=== PATIENT | male | born 1945 | race Caucasian/White ===

== ENCOUNTER 2021-07-28 09:34 | Day surgery (SDC) | payer MEDICARE, SELFPAY ==
--- NOTE | 2021-07-28 06:36 | W.ANESPRE ---
General Info Date of Service Date Performed: 07/28/21 Height: 6 ft Weight: 77.111 kg Body Mass Index (BMI): 23.0 Surgical Procedure: Operation Date: 07/28/21 11:25 Proposed Procedure Side Surgeon p Cataract Extraction with IOL Implant Left Tello Stinson MD Meds Allergies and Home Medications Allergies Allergy/AdvReac Type Severity Reaction Status Date / Time clopidogrel Allergy Severe Skin Rash Unverified 07/28/21 09:48 fish oil Allergy Intermediate rash Unverified 07/28/21 09:48 venom-honey bee Allergy Intermediate Swelling/Ed Unverified 07/28/21 09:48 [bee venom (honey bee)] pearl Home Medication Medication Instructions Recorded cholecalciferol (vitamin D3) 25 1,000 unit PO DAILY 02/18/15 mcg (1,000 unit) capsule (Vitamin D3) garlic 1 ea PO DAILY 02/18/15 metoprolol succinate 50 mg 50 mg PO DAILY 02/18/15 tablet,extended release 24 hr (Toprol XL) Cbd Extract 12.5 mg topical BID 07/26/21 apixaban 5 mg tablet (Eliquis) 5 mg PO BID 07/26/21 atorvastatin 40 mg tablet 40 mg PO DAILY 07/26/21 fenofibrate 54 mg tablet 54 mg PO DAILY 07/26/21 finasteride 5 mg tablet 5 mg PO DAILY 07/26/21 prednisone 20 mg tablet 20 mg PO DIRECTED 07/26/21 [facility] Medical History Medical History (Updated 07/28/21 @ 09:47 by Myesha Bennett) A-fib Acquired stenosis of bladder neck Actinic keratoses Backache CAD (coronary artery disease) Cataract Compression injury of nerve Cough HLD (hyperlipidemia) Hx of colonic polyp Hyperlipidemia Impotence of organic origin Itching Myocardial infarction 2007-F/U with Dr. Garza- roughly seen 05/2021. Pt. 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 FELICIA (obstructive sleep apnea) Seborrheic dermatitis Skin malignant neoplasm Snoring Surgical History Surgical History (Updated 07/27/21 @ 11:39 by José Ramos) Coronary Stent 2007 x1 Skin Cancer Removal Tobacco Smoking/Tobacco Use Status: Never Alcohol Alcohol Intake: never Substance Use Substance use: Never Substance use type: does not use Vital Signs and Lab Results Lab Results Blood Type / Crossmatch: No Data to Display Complete Blood Count: No Data to Display Complete Metabolic Panel: No Data to Display Liver Function Panel: No Data to Display Coagulation Panel: No Data to Display Cardiac Panel: No Data to Display Arterial Blood Gas: No Data to Display Venous Blood Gas: No Data to Display Pancreas Panel: No Data to Display Thyroid Panel: No Data to Display Infectious Disease: No Data to Display Blood Cultures: No Data to Display Toxicology Panel: No Data to Display Anesthesia Assessment and Plan Anesthesia History Personal History: No History of Anesthesia Complications Family History: No Family History of Anesthesia Complications Exercise Tolerance Exercise Tolerance: Metabolic Equivalents>4 Cardiac & Pulmonary Exam Cardiac Exam: Normal S1/S2 Heart Sounds Pulmonary Exam: Clear Bilateral Breath Sounds Implantable Cardiac Device Does patient have a Pacemaker or an ICD?: No Airway Exam Known Difficult Airway: No Mallampati Class: 1 Mouth Opening: Normal (> 3cm) Thyromental Distance: Greater than 3 cm Neck Range of Motion: Full ROM Neck Circumference: Normal Teeth Condition: Normal Dentition ASA Classification ASA Score: ASA 3 Emergency Case?: No NPO Status NPO Status: NPO Clears >2 hours, Solids >8 hours Anesthesia Plan Resuscitation Status: Full Code Anesthesia Technique: MAC Anesthesia Airway Planned: Natural Airway Monitors Used: Standard Monitors Preoperative Comments:: 76 yo male for cataract removal. Sig PMHx: CAD/[place] 2008 (metoprolol), afib (eliquis), FELICIA, back pain. Previous Anes: 5 LMA, easy mask. No mko
[2021-07-28 09:28] VITALS: BMI 23.0
[2021-07-28 09:40] VITALS: BP 148/72; PULSE 66; RESP 16; TEMP 36.4; O2SAT 98
[2021-07-28] MEDS: Tropicam./Phenyleph. (1/2.5%) 5 ML BTL ×3 (09:45→10:00)
[2021-07-28] MEDS: Balanced Salt Soln.-PLUS 500 ML BAG (10:48)
[2021-07-28] MEDS: Lidocaine 2% Jelly 6 ML SYR (10:48)
[2021-07-28] MEDS: Povidone-Iodine Ophth 30 ML BTL (10:49)
[2021-07-28] MEDS: Duovisc Viscoelastic System EACH 1 EACH (10:50)
[2021-07-28] MEDS: Tetracaine 0.5% 4 ML BTL (10:50)
--- NOTE | 2021-07-28 11:03 | W.PM.DSUDISC ---
Discharge Plan Disposition Patient Disposition: HOME Condition: Good Discharge Details Attending Provider: Tello Stinson Primary Care Provider: Baudilio Saunders [place] Meds and New Rx's Prescriptions: No Action metoprolol succinate [Toprol XL] 50 MG tablet extended release 24 hr 50 mg PO DAILY garlic 1 EACH capsule 1 ea PO DAILY cholecalciferol (vitamin D3) [Vitamin D3] 1,000 UNIT capsule 1,000 unit PO DAILY atorvastatin 40 mg Tablet 40 mg PO DAILY finasteride 5 mg tablet 5 mg PO DAILY Label Comments: TAKE ONE TABLET BY MOUTH EVERY DAY fenofibrate 54 mg tablet 54 mg PO DAILY Label Comments: TAKE ONE TABLET BY MOUTH EVERY DAY Eliquis 5 mg tablet 5 mg PO BID Label Comments: TAKE ONE TABLET BY MOUTH TWICE A DAY Cbd Extract 12.5 mg topical BID prednisone 20 mg tablet 20 mg PO DIRECTED Label Comments: TAKE ONE TABLET BY MOUTH FOR BEE STING NEEDED Discharge Instructions Stand Alone Forms: Post-op Topical Cataract, Annalise Pacheco (DSU) Discharge Orders Discharge Orders: Discharge Order (Routine); Ordered 07/28/21 Ordered By: Tello Stinson DS: Diagnosis Discharge Diagnosis (1) Cortical cataract of left eye: Status: Resolved (2) Nuclear sclerotic cataract of left eye: Status: Resolved (3) Posterior subcapsular age-related cataract of left eye: Status: Resolved
--- NOTE | 2021-07-28 11:04 | W.PM.OP ---
Date of service: 07/28/21 Time of Service: 10:04 Operative Note Operative Note DATE OF PROCEDURE: 07/28/21 PRE-OP DIAGNOSIS: Nuclear/cortical/posterior subcapsular cataract, left eye POST-OP DIAGNOSIS: same PROCEDURE: Cataract extraction using phacoemulsification with intraocular lens implant, left eye SURGEON: Tello Stinson ANESTHESIA TYPE: Local By Surgeon and MAC Refer to Anesthesia Record PATHOLOGY: none sent COMPLICATIONS: None Patient was transported to: same day Patient's condition: stable Implants: Dur[employer] Duran / [employer] Tecnis [id number] Indications: Progressive decreased vision due to cataract, left eye Procedure Description: CATARACT SURGERY OPERATIVE REPORT PREOPERATIVE DIAGNOSIS: 1. Nuclear/cortical/posterior subcapsular cataract, left eye POSTOPERATIVE DIAGNOSIS: Same OPERATION: 1. Cataract extraction using phacoemulsification with posterior chamber intraocular lens implant, left eye. IOL: IOL Certified Technician Specialist/Model: Duran [employer] Duran / ELADIO Tecnis [id number] IOL Power: + 20.0 diopters IOL Serial Number: [id number] Optic Diameter: 6.0 mm Haptic/Overall Diameter: 13.0 mm PHACO INFO: Tuan Eye[employer]urion Vision System with OZil and Active Fluidics Cumulative Dispersed Energy (CDE): 9.11 seconds SURGEON: Tello Stinson MD, MARY ANESTHESIA: Monitored A [facility] (MAC), with local sub-tenon's anesthetic infiltration COMPLICATIONS: None SPECIMENS: None INDICATIONS FOR PROCEDURE: The patient is a 76-year-old gentleman with history of diminished visual acuity in his left eye secondary to the development of nuclear/cortical/posterior subcapsular cataract. The option of cataract surgery was offered to the patient and he felt he was symptomatic enough that he wished to proceed. PROCEDURE: The correct surgical eye was identified and marked as the left eye and the pupil was dilated in the preoperative area using mydriatics and cycloplegics. The dilated pupil size was 7.0 mm. He elected to proceed without oral sedation.. The patient was brought to the operating room where cardiopulmonary monitoring was instituted and surgical time-out was performed, confirming the correct operative eye and IOL power. Topical anesthesia was administered and ophthalmic povidone-iodine 5% was instilled into the conjunctival fornices. Lidocaine gel was applied to the cornea and the saurabh-ocular area was prepped with Betadine 10% solution and draped in the usual sterile fashion for intraocular surgery, including an aperture drape. A Tegaderm transparent film dressing was cut in half and used to cover the lashes and lid margins. Care was taken to sequester the lashes and lid margins under the Tegaderm dressing. A lid speculum was placed between the lids of the operative eye and the Tuan [employer] Revalia operating microscope was maneuvered into position. Kevin scissors were then used to make a conjunctival buttonhole approximately 6mm posterior to the limbus in the inferonasal quadrant. Blunt dissection was carried out to expose bare sclera, and a blunt-tipped sub-tenon?s anesthesia cannula was introduced and passed posteriorly along the globe where non-preserved plain lidocaine was injected into posterior sub-Tenon?s space. A sideport knife was used to make a paracentesis port superiorly/superiortemporally. Intraocular phenylephrine/lidocaine was injected int the anterior chamber.. The anterior chamber was filled with viscoelastic. A 2.4mm keratome knife was used to construct a 2-plane near-clear corneal tunnel extending 2.0mm into clear cornea temporally. A flap was raised on the anterior capsule and capsulorhexis forceps were used to complete a continuous curvilinear capsulorhexis of 5.0 mm. Balanced salt solution was then used to perform cortical cleaving hydrodissection and nuclear hydrodelineation until the lens could be freely rotated within the capsular bag. The lens nucleus was then disassembled and removed within the capsular bag and iris plane using phacoemulsification. Residual cortical material was removed using the 45-degree angled silicone I/A tip with 0.3mm port. The posterior capsule was carefully polished to remove as much residual lens epithelial cells as safely possible. The capsular bag was then inflated and the anterior chamber deepened with viscoelastic. The lens implant described above was inserted into the capsular bag using the ELADIO [place] Injector. A Kuglen hook was used to dial the IOL into position. Residual viscoelastic was then removed first from posterior to the IOL, then from the anterior chamber using the I/A handpiece. The lens implant was noted to center nicely within the capsular bag. The incisions were stromally hydrated, and the anterior chamber was reformed using BSS. Then 0.5cc of moxifloxacin 1.0mg/ml were injected into the capsular bag and anterior chamber. The incisions were checked with a Weck spear and found to be secure. Several drops of ophthalmic povidone-iodine 5% were then applied to the eye followed by two drops of Imprimis combination prednisolone/moxifloxacin/nepafenac solution. The drapes were removed and a clear plastic protective eye shield was placed over the eye. The patient was then returned to Same Day Surgery in stable condition.
[2021-07-28 11:10] VITALS: BP 134/65; PULSE 53; RESP 16; TEMP 36.5; O2SAT 98
--- NOTE | 2021-07-28 11:27 | W.ANESPOSTOP ---
Postoperative Evaluation Date, Time and Location Date Performed: 07/28/21 Time Performed: 10:27 Patient Location: Day Surgery Unit Vital Signs Most Recent Imported Vital Signs: Most Recent Vital Signs Temp Pulse Resp BP Pulse Ox 36.5 C 53 L 16 134/65 98 07/28/21 11:10 07/28/21 11:10 07/28/21 11:10 07/28/21 11:10 07/28/21 11:10 Pain Score Most Recent Pain Score: Most Recent Pain Score Pain Level 0 07/28/21 11:10 Assessment Mental Status: Awake (Alert & Oriented to Patient Baseline) Airway and Respiratory Function: Patent airway with normal (patient baseline) respiratory exam Cardiovascular Function: Hemodynamically Stable Hydration Status: Adequately Hydrated Nausea & Vomiting: No Nausea or Vomiting Pain: Pt. Denies Any Pain Peripheral Nerve Block: Patient did not receive a nerve block
== END 2021-07-28 11:37 | disposition home or self-care (01) ==
PROVIDERS: PCP Neuromusculoskeletal Medicine & OMM; Visit Provider Ophthalmology
PROC: (CPT 66984; principal; 2021-07-28 11:30)
DX: H25.812 Combined forms of age-related cataract, left eye (principal); I48.91 Unspecified atrial fibrillation; I25.10 Atherosclerotic heart disease of native coronary artery without angina pectoris; G47.33 Obstructive sleep apnea (adult) (pediatric); Z79.01 Long term (current) use of anticoagulants
CPT/HCPCS: 66984; V2632

== ENCOUNTER 2021-08-11 06:53 | Day surgery (SDC) | payer MEDICARE, SELFPAY ==
[2021-08-11] MEDS: Tropicam./Phenyleph. (1/2.5%) 5 ML BTL OD ×3 (07:24→07:40)
[2021-08-11 07:25] VITALS: BP 129/80; PULSE 60; RESP 16; TEMP 36.4; O2SAT 98
--- NOTE | 2021-08-11 07:46 | ANES.PREOP_ITS ---
General Info Date of Service Date Performed: 08/11/21 Height: 6 ft Weight: 79.7 kg Body Mass Index (BMI): 23.8 Surgical Procedure: Operation Date: 08/11/21 08:25 Proposed Procedure Side Surgeon p Cataract Extraction with IOL Implant Right Tello Stinson MD Meds Allergies and Home Medications Allergies Allergy/AdvReac Type Severity Reaction Status Date / Time clopidogrel Allergy Severe Skin Rash Unverified 08/11/21 07:13 fish oil Allergy Intermediate rash Unverified 08/11/21 07:13 venom-honey bee Allergy Intermediate Swelling/Ed Unverified 08/11/21 07:13 [bee venom (honey bee)] pearl fentanyl AdvReac vomiting Verified 08/11/21 07:47 Home Medication Medication Instructions Recorded cholecalciferol (vitamin D3) 25 1,000 unit PO DAILY 02/18/15 mcg (1,000 unit) capsule (Vitamin D3) garlic 1 ea PO DAILY 02/18/15 metoprolol succinate 50 mg 50 mg PO HS 02/18/15 tablet,extended release 24 hr (Toprol XL) Cbd Extract 12.5 mg topical BID 07/26/21 apixaban 5 mg tablet (Eliquis) 5 mg PO BID 07/26/21 atorvastatin 40 mg tablet 40 mg PO DAILY 07/26/21 fenofibrate 54 mg tablet 54 mg PO DAILY 07/26/21 finasteride 5 mg tablet 5 mg PO DAILY 07/26/21 prednisone 20 mg tablet 20 mg PO DIRECTED 07/26/21 dimenhydrinate 50 mg tablet 50 mg PO Q8H 08/11/21 (Dramamine) sertraline 50 mg tablet 0.5 tab PO DAILY 08/11/21 Current Visit Medications: Current Medications Generic Name Dose Route Start Last Admin Trade Name Freq PRN Reason Stop Dose Admin Acetaminophen 1,000 mg 08/11/21 06:00 Acetaminophen 500 Mg Tab PO Q4H PRN PRN Miscellaneous Medication 0 ml 08/11/21 06:00 Prednisolone 1%, Moxifloxacin 0.5%, Nepafenac 0.1% 5ml Btl OD DIRECTED [facility] Miscellaneous Medication 0 ml 08/11/21 06:00 08/11/21 07:40 Tropicam./Phenyleph. (1/2.5%) 5 Ml Btl OD 1 drp DIRECTED DIANA Administration Tetracaine HCl 0 ml 08/11/21 06:00 Tetracaine 0.5% 4 Ml Btl OD DIRECTED DIANA PFSH Active Problems Active Problems: Problem Status Onset Code Cortical cataract of left eye H26.9 Nuclear sclerotic cataract of left eye H25.12 Posterior subcapsular age-related cataract of left eye H25.042 Medical History Medical History (Updated 08/11/21 @ 07:19 by Atiya Booker) A-fib Acquired stenosis of bladder neck Actinic keratoses Backache CAD (coronary artery disease) Cataract Compression injury of nerve Cough HLD (hyperlipidemia) Hx of colonic polyp Hx of motion sickness Hyperlipidemia Impotence of organic origin Itching Myocardial infarction 2007-F/U with Dr. Garza- roughly seen 05/2021. Pt. 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 FELICIA (obstructive sleep apnea) Seborrheic dermatitis Skin malignant neoplasm Snoring Surgical History Surgical History Coronary Stent 2007 x1 Hx of cataract surgery Skin Cancer Removal Tobacco Smoking/Tobacco Use Status: Never Alcohol Alcohol Intake: never Substance Use Substance use: Never Substance use type: does not use Vital Signs and Lab Results Vital Signs Most Recent Vital Signs in EMR: Most Recent Vital Signs Temp Pulse Resp BP Pulse Ox 36.4 C L 60 16 129/80 98 08/11/21 07:25 08/11/21 07:25 08/11/21 07:25 08/11/21 07:25 08/11/21 07:25 Lab Results Blood Type / Crossmatch: No Data to Display Complete Blood Count: No Data to Display Complete Metabolic Panel: No Data to Display Liver Function Panel: No Data to Display Coagulation Panel: No Data to Display Cardiac Panel: No Data to Display Arterial Blood Gas: No Data to Display Venous Blood Gas: No Data to Display Pancreas Panel: No Data to Display Thyroid Panel: No Data to Display Infectious Disease: No Data to Display Blood Cultures: No Data to Display Toxicology Panel: No Data to Display Anesthesia Assessment and Plan Anesthesia History Personal History: No History of Anesthesia Complications Family History: No Family History of Anesthesia Complications Exercise Tolerance Exercise Tolerance: Metabolic Equivalents>4 Cardiac & Pulmonary Exam Cardiac Exam: Normal S1/S2 Heart Sounds Pulmonary Exam: Clear Bilateral Breath Sounds Implantable Cardiac Device Does patient have a Pacemaker or an ICD?: No Airway Exam Known Difficult Airway: No Mallampati Class: 1 Mouth Opening: Normal (> 3cm) Thyromental Distance: Greater than 3 cm Neck Range of Motion: Full ROM Neck Circumference: Normal Teeth Condition: Normal Dentition ASA Classification ASA Score: ASA 3 Emergency Case?: No NPO Status NPO Status: NPO Clears >2 hours, Solids >8 hours Anesthesia Plan Resuscitation Status: Full Code Anesthesia Technique: MAC Anesthesia Airway Planned: Natural Airway Monitors Used: Standard Monitors
[2021-08-11 07:47] VITALS: BMI 23.8
[2021-08-11] MEDS: Tetracaine 0.5% 4 ML BTL OD (08:10)
[2021-08-11] MEDS: Balanced Salt Soln.-PLUS 500 ML BAG (08:10)
[2021-08-11] MEDS: Duovisc Viscoelastic System EACH 1 EACH (08:11)
[2021-08-11] MEDS: Lidocaine 2% Jelly 6 ML SYR (08:13)
[2021-08-11] MEDS: Povidone-Iodine Ophth 30 ML BTL (08:14)
--- NOTE | 2021-08-11 08:29 | W.PM.DSUDISC ---
Discharge Plan Disposition Patient Disposition: HOME Condition: Good Discharge Details Attending Provider: Tello Stinson Primary Care Provider: Baudilio Saunders [place] Meds and New Rx's Prescriptions: No Action metoprolol succinate [Toprol XL] 50 MG tablet extended release 24 hr 50 mg PO HS garlic 1 EACH capsule 1 ea PO DAILY cholecalciferol (vitamin D3) [Vitamin D3] 1,000 UNIT capsule 1,000 unit PO DAILY dimenhydrinate [Dramamine] 50 mg Tablet 50 mg PO Q8H sertraline 50 mg tablet 0.5 tab PO DAILY Label Comments: TAKE ONE TABLET BY MOUTH EVERY DAY atorvastatin 40 mg Tablet 40 mg PO DAILY finasteride 5 mg tablet 5 mg PO DAILY Label Comments: TAKE ONE TABLET BY MOUTH EVERY DAY fenofibrate 54 mg tablet 54 mg PO DAILY Label Comments: TAKE ONE TABLET BY MOUTH EVERY DAY Eliquis 5 mg tablet 5 mg PO BID Label Comments: TAKE ONE TABLET BY MOUTH TWICE A DAY Cbd Extract 12.5 mg topical BID prednisone 20 mg tablet 20 mg PO DIRECTED Label Comments: TAKE ONE TABLET BY MOUTH FOR BEE STING NEEDED Discharge Instructions Stand Alone Forms: Post-op Topical Cataract, Annalise Pacheco (DSU) Discharge Orders Discharge Orders: Discharge Order (Routine); Ordered 08/11/21 Ordered By: Tello Stinson DS: Diagnosis Discharge Diagnosis (1) Cortical cataract of right eye: Status: Resolved (2) Nuclear sclerotic cataract of right eye: Status: Resolved (3) Posterior subcapsular age-related cataract, right eye: Status: Resolved
[2021-08-11 08:30] VITALS: BP 121/76; PULSE 62; RESP 16; TEMP 36.7; O2SAT 97
--- NOTE | 2021-08-11 08:31 | ROE_ITS ---
Date of service: 08/11/21 Time of Service: 07:31 Operative Note Operative Note DATE OF PROCEDURE: 08/11/21 PRE-OP DIAGNOSIS: Nuclear/cortical/posterior subcapsular cataract, right eye POST-OP DIAGNOSIS: same PROCEDURE: Cataract extraction using phacoemulsification with intraocular lens implant, right eye SURGEON: Tello Stinson ANESTHESIA TYPE: Local By Surgeon and MAC Refer to Anesthesia Record ESTIMATED BLOOD LOSS: 0 PATHOLOGY: none sent COMPLICATIONS: None Patient was transported to: same day Patient's condition: stable Implants: Duran & Duran/ELADIO Tecnis [id number] Indications: Progressive visual loss due to cataract, right eye Procedure Description: CATARACT SURGERY OPERATIVE REPORT PREOPERATIVE DIAGNOSIS: 1. Nuclear/cortical/posterior subcapsular cataract, right eye POSTOPERATIVE DIAGNOSIS: Same OPERATION: 1. Cataract extraction using phacoemulsification with posterior chamber intraocular lens implant, right eye. IOL: IOL Auto Service Instructor/Model: Dur[employer] Duran / ELADIO Tecnis [id number] IOL Power: + 20.5 diopters IOL Serial Number: [id number] Optic Diameter: 6.0mm Haptic/Overall Diameter: 13.0mm PHACO INFO: Tuan Quat-Eurion Vision System with OZil and Active Fluidics Cumulative Dispersed Energy (CDE): 9.70 seconds SURGEON: Tello Stinson MD, MARY ANESTHESIA: Monitored Anesthesia Care (MAC), with local sub-tenon's anesthetic infiltration COMPLICATIONS: None SPECIMENS: None INDICATIONS FOR PROCEDURE: The patient is a 76-year-old gentleman with history of diminished visual acuity in his right eye secondary to the development of nuclear/cortical/posterior subcapsular cataract. He has already undergone cataract surgery in the left eye and is doing well postoperatively. He now presents for cataract surgery in the right eye. PROCEDURE: The correct surgical eye was identified and marked as the right eye and the pupil was dilated in the preoperative area using mydriatics and cycloplegics. The dilated pupil size was 7.0 mm. He elected to proceed without oral sedation.. The patient was brought to the operating room where cardiopulmonary monitoring was instituted and surgical time-out was performed, confirming the correct operative eye and IOL power. Topical anesthesia was administered and ophthalmic povidone-iodine 5% was instilled into the conjunctival fornices. Lidocaine gel was applied to the cornea and the saurabh-ocular area was prepped with Betadine 10% solution and draped in the usual sterile fashion for intraocular surgery, including an aperture drape. A Tegaderm transparent film dressing was cut in half and used to cover the lashes and lid margins. Care was taken to sequester the lashes and lid margins under the Tegaderm dressing. A lid speculum was placed between the lids of the operative eye and the Tuan [employer] Revalia operating microscope was maneuvered into position. Kevin scissors were then used to make a conjunctival buttonhole approximately 6mm posterior to the limbus in the inferonasal quadrant. Blunt dissection was carried out to expose bare sclera, and a blunt-tipped sub-tenon?s anesthesia cannula was introduced and passed posteriorly along the globe where non- preserved plain lidocaine was injected into posterior sub-Tenon?s space. A curtis eport knife was used to make a paracentesis port inferotemporally. Intraocular phenylephrine/lidocaine was injected into the anterior chamber. The anterior chamber was filled with viscoelastic. A 2.4mm keratome knife was used to construct a 2-plane near-clear corneal tunnel extending 2.0mm into clear cornea superiortemporally. A flap was raised on the anterior capsule and capsulorhexis forceps were used to complete a continuous curvilinear capsulorhexis of 5.0 mm. Balanced salt solution was then used to perform cortical cleaving hydrodissection and nuclear hydrodelineation until the lens could be freely rotated within the capsular bag. The lens nucleus was then disassembled and removed within the capsular bag and iris plane using phacoemulsification. Residual cortical material was removed using the I/A handpiece. The posterior capsule was carefully polished to remove as much residual lens epithelial cells as safely possible. The capsular bag was then inflated and the anterior chamber deepened with viscoelastic. The lens implant described above was inserted into the capsular bag using the ELADIO [place] Injector. A Kuglen hook was used to dial the IOL into position. Residual viscoelastic was then removed first from posterior to the IOL, then from the anterior chamber using the I/A handpiece. The lens implant was noted to center nicely within the capsular bag. The incisions were stromally hydrated, and the anterior chamber was reformed using BSS. Then 0.5cc of moxifloxacin 1.0mg/ml were injected into the capsular bag and anterior chamber. The incisions were checked with a Weck spear and found to be secure. Several drops of ophthalmic povidone-iodine 5% were then applied to the eye followed by two drops of Imprimis combination prednisolone/moxifloxacin/nepafenac solution. The drapes were removed and a clear plastic protective eye shield was placed over the eye. The patient was then returned to Same Day Surgery in stable condition.
--- NOTE | 2021-08-11 08:32 | W.ANESPOSTOP ---
Postoperative Evaluation Date, Time and Location Date Performed: 08/11/21 Time Performed: 08:23 Patient Location: Day Surgery Unit Vital Signs Most Recent Imported Vital Signs: Most Recent Vital Signs Temp Pulse Resp BP Pulse Ox 36.4 C L 60 16 129/80 98 08/11/21 07:25 08/11/21 07:25 08/11/21 07:25 08/11/21 07:25 08/11/21 07:25 Most Recent Manually Entered Vital Signs: Adult Blood Pressure: 121/76 Heart Rate: 62 Respirations: 16 Oxygen Saturation (%): 97 Temperature (C): 36.7 C Pain Score (0-10 Scale): 0 Pain Score Most Recent Pain Score: Most Recent Pain Score Pain Level 0 08/11/21 07:25 Assessment Mental Status: Awake (Alert & Oriented to Patient Baseline) Airway and Respiratory Function: Patent airway with normal (patient baseline) respiratory exam Cardiovascular Function: Hemodynamically Stable Hydration Status: Adequately Hydrated Nausea & Vomiting: No Nausea or Vomiting Pain: Pt. Denies Any Pain Peripheral Nerve Block: Patient did not receive a nerve block
[2021-08-11 08:33] VITALS: BP 121/76; PULSE 62; RESP 16; TEMPC 36.7; O2SAT 97
== END 2021-08-11 08:50 | disposition home or self-care (01) ==
PROVIDERS: PCP Neuromusculoskeletal Medicine & OMM; Visit Provider Ophthalmology
PROC: (CPT 66984; principal; 2021-08-11 08:15)
DX: H25.811 Combined forms of age-related cataract, right eye (principal); I48.91 Unspecified atrial fibrillation; E78.5 Hyperlipidemia, unspecified; I25.10 Atherosclerotic heart disease of native coronary artery without angina pectoris; G47.33 Obstructive sleep apnea (adult) (pediatric)
CPT/HCPCS: 66984; V2632